=== PATIENT | male | born 1995 | race Caucasian/White ===

== ENCOUNTER → 2018-09-08 | Outpatient (CLI) | payer BC ==
--- NOTE | 2018-09-08 14:30 | Diagnostic Imaging Report ---
PROCEDURE: MRI right joint upper extremity without contrast. TECHNIQUE: Multiplanar, multisequence MR imaging of the right shoulder was performed without contrast. COMPARISON: None available. INDICATION: Right shoulder pain after injury approximately one and half months ago. FINDINGS: Rotator cuff: No rotator cuff tear. Rotator cuff muscle is normal in bulk and there are no features of muscle strain. Glenoid labrum: By non-arthrogram imaging, the glenoid labrum appears intact. No para-labral cyst. Long head of biceps: Long head of biceps is normally positioned within the bicipital groove. The intracapsular segment is intact. Bones and cartilage: Humeral head is normal in morphology without fracture or focal osseous lesion. No glenohumeral chondromalacia. There is abnormal edema involving the acromioclavicular ligament/capsule which appears torn in its inferior aspect. Additionally, there is linear edema in the distal clavicle associated with a hypointense fracture line. Coracoclavicular ligaments remain intact. Soft tissues: No glenohumeral joint effusion. No MRI findings to suggest adhesive capsulitis. No fluid or inflammatory like signal within the subacromial/subdeltoid space to indicate bursitis. IMPRESSION: 1. Acute to subacute nondisplaced fracture of the distal clavicle adjacent to the AC joint. 2. Low-grade AC joint injury characterized by capsular/ligamentous tear. No subluxation of the joint. The coracoclavicular ligaments remain intact. 3. Normal rotator cuff. Dictated by: Dictated on workstation # [id number]
== END ==
LOC: RAD 12:55
PROVIDERS: ATTEND Family Medicine
DX: S42.035A Nondisplaced fracture of lateral end of left clavicle, initial encounter for closed fracture (principal)
CPT/HCPCS: 73221